=== PATIENT | female | born 1980 | race Caucasian/White ===

== ENCOUNTER 2019-04-21 07:39 | Emergency (ER) | payer BC, OTHER ==
[~2019-04-21] VITALS: Ht 167.6 cm; Wt 95.3 kg
--- OUTSIDE RECORDS SUMMARY | 2019-04-21 07:41 | XMS REPORT ---
Author Author [facility] Address Unknown Phone Unavailable Care Team Providers Care Cardiac Cath Technologist Name Role Phone Unavailable Unavailable Payers Payer Name Policy Type Policy Number Effective Date Expiration Date Problems This patient has no known problems. Allergies, Adverse Reactions, Alerts This patient has no known allergies or adverse reactions. Medications This patient has no known medications.
[2019-04-21] MEDS ORDERED: IBUPROFEN 600 MG TAB PO STA (09:01)
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
[2019-04-21] MEDS ORDERED: HYDROCODONE/APAP 5MG-325MG TAB PO ONE (09:15)
== END 2019-04-21 09:57 | disposition home or self-care (01) ==
LOC: ER 07:39
DX: S16.1XXA Strain of muscle, fascia and tendon at neck level, initial encounter (principal); M54.6 Pain in thoracic spine; S60.511A Abrasion of right hand, initial encounter; S80.11XA Contusion of right lower leg, initial encounter; V43.52XA Car driver injured in collision with other type car in traffic accident, initial encounter
CPT/HCPCS: 72125; 72128; 99284